=== PATIENT | female | born 1995 | race Caucasian/White ===

== ENCOUNTER 2016-10-10 21:46 | Emergency (ER) | payer OTHER ==
[2016-10-10 21:48] VITALS: Ht 167.6 cm
[2016-10-10 22:05] VITALS: O2SAT 100
[2016-10-10] MEDS ORDERED: LIDOCAINE/EPINEPH/TETRACAINE 1 EA SYR EXT STA (22:13)
--- NOTE | 2016-10-10 23:11 | EMERGENCY ROOM VISIT NOTE ---
History First contact with patient: 22:07 Chief Complaint: ALCOHOL OVERDOSE Stated Complaint: LACERATION TO CHIN Nursing Triage Summary: patient at [facility] drinking since 7pm has had about 8-10 shots. fell from standing position and hit the floor in the kitchen. laceration to the chin. patient unable to stand or ambulate with out help. crying at this time. speech slurred and unable to speak complete converstions. History of Present Illness The patient is a 20 year old female who is brought to the emergency department by her boyfriend and a friend, who state that the patient had been drinking alcohol tonight and tripped, striking her chin on the floor. The patient admits to drinking 8-10 shots of vodka tonight. The patient lost balance and fell from a standing position, striking her chin on the floor. The patient is crying and upset. She denies any nausea or vomiting. She denies any pain. There was no loss of consciousness at the time of the injury. Review of Systems A complete 10-point Review of Systems was discussed with the patient, with pertinent positives and negatives listed in the History of Present Illness. All remaining Review of Systems questions can be considered negative unless otherwise specified. Social History Smoking Status: Never Smoker Current/Historical Medications Unable to Obtain Active Prescriptions or Reported Meds Physical Exam Vital Signs Date Time Temp Pulse Resp B/P Pulse Ox O2 Delivery O2 Flow Rate FiO2 10/11/16 05:55 100 18 117/76 99 Room Air 10/11/16 05:53 36.4 93 10 110/61 99 10/11/16 05:36 93 10 99 10/11/16 05:06 86 21 96 10/11/16 05:01 81 19 95 10/11/16 04:31 89 26 94 10/11/16 04:01 89 18 95 10/11/16 04:00 110/61 10/11/16 03:58 106/66 10/11/16 03:31 99 17 97 10/11/16 03:01 112 17 97 10/11/16 03:00 119/82 10/11/16 02:31 91 21 99 10/11/16 02:01 98 14 98 10/11/16 01:31 119 16 98 10/11/16 01:01 121 17 99 10/11/16 00:33 100 16 121/81 97 Room Air 10/11/16 00:32 121/81 10/11/16 00:31 96 31 10/11/16 00:26 102 19 10/11/16 00:21 93 18 10/11/16 00:16 105 23 10/11/16 00:11 115 17 10/11/16 00:06 97 17 10/11/16 00:01 93 16 10/10/16 23:56 116 30 10/10/16 23:51 74 15 10/10/16 23:46 88 15 10/10/16 23:41 82 18 10/10/16 23:36 77 17 10/10/16 23:31 81 16 10/10/16 23:26 89 17 10/10/16 23:21 88 17 10/10/16 23:16 83 17 10/10/16 23:11 99 23 10/10/16 23:06 96 24 10/10/16 23:01 99 16 10/10/16 23:00 124/101 10/10/16 22:59 116 20 124/101 97 Room Air 10/10/16 22:51 107 20 100 10/10/16 22:46 101 20 99 10/10/16 22:41 104 23 99 10/10/16 22:36 116 21 99 10/10/16 22:31 110 25 98 10/10/16 22:26 104 20 98 10/10/16 22:21 107 16 99 10/10/16 22:16 110 19 99 10/10/16 22:11 97 28 99 10/10/16 22:06 99 19 98 10/10/16 22:05 100 Room Air 10/10/16 21:58 106/86 10/10/16 21:48 36.4 117 18 119/71 98 Room Air Physical Exam VITALS: Vitals are noted on the nurse's note and reviewed by myself. Vital signs stable. GENERAL: This is a 20-year-old female, intoxicated-appearing and slurring speech , well-developed well-nourished. SKIN: No ecchymosis or edema. There is a 2.5 cm laceration to the underside of the chin which gapes widely. HEENT: Normocephalic. PERRLA. EOMI. Lateral nystagmus noted. Nares patent. Mucous membranes moist. Neck is supple without nuchal rigidity. HEART: Regular rate and rhythm without murmurs gallops or rubs. LUNGS: Clear to auscultation bilaterally without wheezes, rales or rhonchi. No retractions or accessory muscle use. ABDOMEN: Positive bowel sounds x 4. Soft, nontender. MUSCULOSKELETAL: Full range of motion and strength 5/5 throughout. NEURO: Patient was alert and oriented to person. She is visibly intoxicated. Medical Decision & Procedures Laboratory Results 10/10/16 22:27 Test 10/10/16 22:27 Anion Gap 14.0 mmol/L (3-11) Estimated GFR () > 150.0 Estimated GFR (Non- 130.7 BUN/Creatinine Ratio 8.5 (10-20) Calcium Level 9.0 mg/dl (8.5-10.1) Ethyl Alcohol mg/dL 362.0 mg/dl (0-3) Medications Administered Medications (Trade) Dose Ordered Sig/Sariah Route Start Time Stop Time Status Last Admin Dose Admin Tetracaine/ Epinephrine/ Lidocaine (L.e.t. Gel 4%/ 1:100/0.5%) 1 ea UD STAT EXT 10/10/16 22:13 10/10/16 22:15 DC 10/10/16 22:21 1 EA Procedure Verbal consent was obtained to perform the procedure. LET gel was applied to the laceration and left in place for greater than 30 minutes. Using sterile technique the wound was cleaned with Betadine. The area was sterilely draped. Once the patient was anesthetized, the wound was copiously irrigated under pressure with sterile saline. The wound was explored as noted in the physical exam. The laceration was repaired using 7 simple interrupted 6-0 nylon sutures with the wound edges being well approximated. The patient tolerated the procedure well. Hemostasis was achieved. The area was cleaned with sterile saline and dressed with bacitracin ointment and bandage. Medical Decision Differential diagnosis includes alcohol intoxication, drug use, among others. The patient was evaluated as above. The patient is significantly intoxicated on examination. For this reason, labs were drawn. The patient's blood alcohol was found to be 362. Her laceration was repaired as noted in the procedure note. She was observed in the emergency department for several hours until she was awake and alert. She was discharged home under the care of a sober friend. Impression Primary Impression: Alcohol use with intoxication Additional Impression: Laceration of chin Departure Information Dispostion Home / Self-Care Condition GOOD Prescriptions Unable to Obtain Active Prescriptions or Reported Meds Referrals No Doctor, Assigned (PCP) Patient Instructions [facility] Additional Instructions You have received 7 sutures on your chin. These sutures are NOT dissolvable and WILL need to be removed by a health care provider in 5-7 days. You can return to the Emergency Department or contact your Primary Care Provider to have the sutures removed. Proper wound care is essential for adequate wound healing and infection prevention. You can shower and clean the wound with soap and water. Do not scour over the wound, pat dry with a towel. Do not submerse the wound (i.e. bathe or dish wash) until the sutures have been removed. You can use an antibiotic ointment with a dressing over the wound for the next 3-4 days. After this time you may leave the wound dry and open to the air. If crust develops over the wound you can use a Q-tip to apply a 1:1 peroxide:water solution to clean the wound. Look for signs of infection of the wound including: increased pain, swelling, foul discharge, streaking, or increased temperature. If any of these are noticed you should return to the Emergency Department for further assessment and treatment. As with any laceration you may have received nerve damage to the surrounding tissues. This damage may or may not be permanent. You should keep the area covered with sunscreen for the first 6 months to 1 year when at risk for exposure to help minimize scarring. You can also use scar reducing creams or Vitamin E oil to help minimize scarring. For pain control, you can use the following [id number] medicines (if >12 yo): - Regular strength (325mg/tab) Tylenol (acetaminophen) 2 tabs every 4-6 hours as needed. Do not exceed 12 tablets in a 24 hour period. Avoid taking more than 4 grams (4000 mg) of Tylenol per day. This includes any other sources of acetaminophen you may take on a regular basis. - Regular strength (200 mg/tab) Advil (ibuprofen) 1-2 tabs every 4-6 hours as needed. Do not exceed a dose of 3200 mg per day. Return to the emergency department if your symptoms worsen despite treatment course outlined above. Problem Qualifiers Additional Impression: Laceration of chin Encounter type: initial encounter Qualified Codes: S01.81XA - Laceration without foreign body of other part of head, initial encounter
[2016-10-10 23:13] LABS: BLOOD UREA NITROGEN 5 mg/dl (7-18); BUN/CREATININE RATIO 8.5 (10-20); CARBON DIOXIDE 20 mmol/L (21-32); CHLORIDE 108 mmol/L (98-107); CREATININE 0.62 mg/dl (0.60-1.20); GLUCOSE 78 mg/dl (70-99); POTASSIUM 3.2 mmol/L (3.5-5.1); SODIUM 142 mmol/L (136-145)
[2016-10-11 05:53] VITALS: TEMP 36.4
[2016-10-11 05:55] VITALS: BP 117/76; PULSE 100; O2SAT 99
== END 2016-10-11 05:56 | disposition home or self-care (01) ==
LOC: C.EDB 21:48 → EDBD 21:48 → C.EDA 10-11 05:56
DX: S01.81XA Laceration without foreign body of other part of head, initial encounter (principal); F10.129 Alcohol abuse with intoxication, unspecified; W18.00XA Striking against unspecified object with subsequent fall, initial encounter